=== PATIENT | male | born 1970 | race Caucasian/White ===

== ENCOUNTER 2023-09-04 11:36 | Emergency (ER) | payer BC, SELFPAY ==
[2023-09-04 11:38] VITALS: BP 197/110
[2023-09-04 12:07] VITALS: BMI 59.3
[2023-09-04 12:23] VITALS: BP 129/81
[2023-09-04 12:26] LABS: % Basophils 0.5 % (0-2); % Eosinophils 1.7 % (0-6); % Immature Granulocytes 0.7 % (0-0.5); % Lymphocytes 15.7 % (20.5-51.1); % Monocytes 7.4 % (1.7-9.3); Absolute Basophils 0.1 10^3/uL (0-0.2); Absolute Eosinophils 0.2 10^3/uL (0-0.7); Absolute Immature Granulocytes 0.1 10^3/uL (0-0.05); Absolute Lymphocytes 1.4 10^3/uL (1.2-3.4); Absolute Monocytes 0.7 10^3/uL (0.1-0.6); Absolute Neutrophils 6.8 10^3/uL (1.4-6.5); Hematocrit 43.1 % (39.0-52.0); Hemoglobin 15.2 g/dL (13.0-18.0); Mean Corp Hgb Conc. 35.3 g/dL (33.0-37.0); Mean Corpuscular Hgb 29.4 pg (27.0-31.0); Mean Corpuscular Volume 83.4 fL (80.0-94.0); Mean Platelet Volume 8.7 fL (7.4-10.4); Nucleated Red Blood Cells % 0 % (-); Platelet Count 206 10^3/uL (130-400); Red Blood Cell Count 5.17 10^6/uL (4.70-6.10); Red Cell Dist. Width 13.7 % (11.5-14.5); White Blood Cell Count 9.2 10^3/uL (4.8-10.8)
[2023-09-04 12:39] LABS: ALT (SGPT) 49 U/L (0-50); AST (SGOT) 31 U/L (17-59); Albumin 4.3 g/dl (3.5-5.0); Alkaline Phosphatase 66 U/L (38-126); Blood Urea Nitrogen 11 mg/dl (9-20); Carbon Dioxide 27 mmol/L (22-30); Chloride 104 mmol/L (98-107); Estimated Creatinine Clearance > 125 ml/min; Glucose 92 mg/dl (70-99); Lipase 77 U/L (23-300); Sodium 140 mmol/L (135-145); Total Bilirubin 0.7 mg/dl (0.2-1.3); Total Protein 7.3 g/dl (6.3-8.2); eGFR > 60.00
[2023-09-04 12:59] LABS: Urine Albumin Negative (Neg - Trace); Urine Bilirubin Negative (Negative); Urine Character Clear (Clear); Urine Color Yellow; Urine Glucose Negative (Negative); Urine Ketone Negative (Negative); Urine Leukocyte Trace (Negative); Urine Nitrite Negative (Negative); Urine Occult Blood Negative (Negative); Urine Urobilinogen Negative (Neg - 1+); Urine pH 6.5 (5.0-9.0)
[2023-09-04 13:20] VITALS: BP 138/84
[2023-09-04 14:20] VITALS: BP 130/84
[2023-09-04 14:20] LABS: Urine Red Blood Cell 0-2 /HPF (0-2); Urine Squamous Cell 0-2 /LPF (Few)
--- NOTE | 2023-09-04 15:19 | ED.GENMED ---
History of Present Illness
<Karan Henry Jr., PA-C - Last Filed: 09/05/23 18:14>
General
Chief Complaint: Abdominal Symptoms
Source: patient
Exam Limitations: none
Time Seen by Provider: 09/04/23 11:52
Nursing documentation reviewed up to this point in time: agreed with
Travel History
Have you had any contact with someone who has COVID-19?: No
Do you have any symptoms of coronavirus? Fever > 100 degrees, chills, cough, shortness of breath, sore throat, loss of taste or smell, muscle aches, or headache?: No
History of Present Illness
History of Present Illness:
53-year-old male presenting to the emergency department today with concerns of left lower quad abdominal pain over the past 24 hours also had some urinary symptoms associated as well. Denies similar symptoms in the past. Denies fevers denies
changes in bowel movements denies nausea vomiting.
Past History
<Karan Henry Jr., PA-C - Last Filed: 09/05/23 18:14>
Past History
ED Past Medical History: Other (MRSA left leg); Negative HTN, Hypercholesterolemia, IDDM or NIDDM
Social History
Tobacco: Former smoker
Alcohol: None
Drug: None
Personal:
Living: with family
Family History
Family History: Other
Review of Systems
<Karan Henry Jr., PA-C - Last Filed: 09/05/23 18:14>
Review of Systems
Allergies reviewed?: Yes
All Other Systems: ROS reviewed and negative except as documented in HPI and ROS
Phy Exam
<Karan Henry Jr., PA-C - Last Filed: 09/05/23 18:14>
Physical Exam
Physical Exam:
GENERAL: Alert , in no apparent distress
EYE: pupils equal and reactive
NECK: Supple, no significant adenopathy.
ENT: o/p clr, mmm.
CARDIAC: Regular rate and rhythm .
LUNGS: Clear breath sounds bilaterally, no acute respiratory distress, no wheezes/rales/rhonchi
ABDOMEN: Left lower quadrant abdominal pain
NEUROLOGICAL: Alert and oriented, no focal neuro deficits
SKIN: Warm and dry, skin intact.
MUSCULOSKELETAL: No edema, well perfused.
PSYCH: Normal and appropriate interaction.
Course
<Karan Henry Jr., CASTILLO - Last Filed: 09/05/23 18:14>
Orders/Labs/Results
Orders:
Orders
09/04/23 12:08
Complete Blood Count/With Diff Urgent
Comprehensive Metabolic Panel Urgent
Lipase Urgent
09/04/23 12:22
Urinalysis Reflex To Culture Urgent
Date Specimen was Collected: 09/04/23
Time Specimen was Collected: 12:12
Urine Microscopic Reflex Cult Urgent
09/04/23 14:58
CT Abd/Pel (IV only)-DH only Urgent
Comment:
Reason For Exam: llq pain
09/04/23 18:03
Ketorolac [Toradol] 15 mg IV NOW STA
09/04/23 18:04
Amoxicillin 875 mg/Clav 125 mg [Augmentin 875 mg/125 mg] 1 tablet PO NOW STA
Abnormal Lab Results
09/04/23 09/04/23
12:08 12:22
Abs Immat Gran (auto) 0.1 H 10^3/uL
(0-0.05)
Absolute Neuts (auto) 6.8 H 10^3/uL
(1.4-6.5)
Absolute Monos (auto) 0.7 H 10^3/uL
(0.1-0.6)
Immature Gran % 0.7 H %
(0-0.5)
Lymphocytes % 15.7 L %
(20.5-51.1)
Leukocyte Esterase Rfl Trace A
(Negative)
09/04/23 12:08
09/04/23 12:08
Vital Signs
Initial and Last Documented VS:
Initial Vital Signs
Temp Pulse Resp BP Pulse Ox
97.7 F 100 20 197/110 97
09/04/23 11:38 09/04/23 11:38 09/04/23 11:38 09/04/23 11:38 09/04/23 11:38
Last Documented Vital Signs
Temp Pulse Resp BP Pulse Ox
98.5 F 96 18 163/88 97
09/04/23 17:19 09/04/23 17:19 09/04/23 14:20 09/04/23 17:19 09/04/23 17:19
<LILIAN Ryan - Last Filed: 09/04/23 18:06>
Orders/Labs/Results
Orders:
Orders
09/04/23 12:08
Complete Blood Count/With Diff Urgent
Comprehensive Metabolic Panel Urgent
Lipase Urgent
09/04/23 12:22
Urinalysis Reflex To Culture Urgent
Date Specimen was Collected: 09/04/23
Time Specimen was Collected: 12:12
Urine Microscopic Reflex Cult Urgent
09/04/23 14:58
CT Abd/Pel (IV only)-[facility] only Urgent
Comment:
Reason For Exam: llq pain
09/04/23 18:03
Ketorolac [Toradol] 15 mg IV NOW STA
09/04/23 18:04
Amoxicillin 875 mg/Clav 125 mg [Augmentin 875 mg/125 mg] 1 tablet PO NOW STA
Abnormal Lab Results
09/04/23 09/04/23
12:08 12:22
Abs Immat Gran (auto) 0.1 H 10^3/uL
(0-0.05)
Absolute Neuts (auto) 6.8 H 10^3/uL
(1.4-6.5)
Absolute Monos (auto) 0.7 H 10^3/uL
(0.1-0.6)
Immature Gran % 0.7 H %
(0-0.5)
Lymphocytes % 15.7 L %
(20.5-51.1)
Leukocyte Esterase Rfl Trace A
(Negative)
09/04/23 12:08
09/04/23 12:08
Vital Signs
Initial and Last Documented VS:
Initial Vital Signs
Temp Pulse Resp BP Pulse Ox
97.7 F 100 20 197/110 97
09/04/23 11:38 09/04/23 11:38 09/04/23 11:38 09/04/23 11:38 09/04/23 11:38
Last Documented Vital Signs
Temp Pulse Resp BP Pulse Ox
98.5 F 96 18 163/88 97
09/04/23 17:19 09/04/23 17:19 09/04/23 14:20 09/04/23 17:19 09/04/23 17:19
<Karan Henry Jr., PA-C - Last Filed: 09/05/23 18:14>
MDM/Problems Addressed
MDM/Problems Addressed:
53-year-old male presenting to the emergency department today with concerns of left lower quadrant abdominal pain starting yesterday. Reproducible tenderness to the left lower quadrant otherwise labs unremarkable. Initial vital signs showing
hypertension and tachycardia otherwise vital signs normal.
<LILIAN Ryan - Last Filed: 09/04/23 18:06>
MDM/Problems Addressed
Differential Diagnosis Includes:
MDM/Problems Addressed:
53-year-old male presenting to the emergency department today with concerns of left lower quadrant abdominal pain starting yesterday. Reproducible tenderness to the left lower quadrant otherwise labs unremarkable. Initial vital signs showing
hypertension and tachycardia otherwise vital signs normal.
185: Received signout from patient. CAT scan does show uncomplicated mild acute diverticulitis in the proximal sigmoid colon. Patient no acute distress mild discomfort will give dose of Toradol will DC on Augmentin with outpatient follow-up
family doctor and GI
<LILIAN Ryan - Last Filed: 09/04/23 18:06>
*Radiology
Radiology exam reviewed: radiology read reviewed
*Critical Care Note
Total Time (30-74mins, 75-104mins- exclusive of procedures): Not Applicable
ED Attending Note
<Karan Henry Jr., PA-C - Last Filed: 09/05/23 18:14>
-
Portions of this chart may have been created with voice recognition software.� Occasional wrong word or��sound alike� substitutions may have occurred due to the inherent limitations of voice recognition software.
Discharge Plan
Departure
Patient Disposition: Home (Routine Discharge)
Date of Disposition: 09/04/23
Time of Disposition: 18:01
Patient with high blood pressure during this ER visit?: Yes
Condition: Fair
Covid-19: Not Applicable
Discharge Problem:
Diverticulitis
Instructions: Diverticulitis (DC), BLOOD PRESSURE
Prescriptions:
New
amoxicillin-pot clavulanate 875-125 mg tablet
1 tab PO BID Qty: 20 0RF
No Action
amlodipine 5 MG tablet
5 mg PO DAILY Qty: 30 0RF
linezolid 600 MG tablet
600 mg PO BID Qty: 22 0RF
gabapentin 100 MG capsule
100 mg PO TID Qty: 90 0RF
Referrals:
Kristi Lu MD [Active] -
Filipe Hoyos MD [Family Provider] -
Activity Restrictions/Additional Instructions:
As discussed bland diet for the next several days. Antibiotic Augmentin twice daily for the next 10 days. This medication was sent to your pharmacy. You are given the first dose here in the ER. You may take Tylenol for discomfort. Return if
any worsening of symptoms or increased pain vomiting fever or chills. Follow-up with your family doctor the next 2 days as well as GI.
Interventions
Interventions:
*Risk Screen - Suicide Last Done: 09/04/23 11:38
*General Assessment Last Done: 09/04/23 11:38
*Neglect/Abuse Screening Last Done: 09/04/23 11:38
ED- Fall Risk Assessment Last Done: 09/04/23 12:07
*ED COVID-19 Vaccine History Last Done: 09/04/23 12:07
*Nursing Disposition Last Done: 09/04/23 18:36
AC-Rautyj-Foucsjzkea Assessment Last Done: 09/04/23 12:07
Discharge Date and Time
Discharge Date/Time: 09/04/23 18:30
Print Language: ALBANIAN
[2023-09-04 17:19] VITALS: BP 163/88
[2023-09-04] MEDS: AUGMENTIN 875 MG/125 MG 1 TABLET PO (18:11)
[2023-09-04] MEDS: TORADOL 15 MG IV (18:11)
== END 2023-09-04 18:30 | disposition home or self-care (01) ==
LOC: EMR 11:36
PROVIDERS: Physician Assistant; EMERGENCY PHYSICIAN Emergency Medicine; FAMILY PHYSICIAN Family Medicine
DX: K57.32 Diverticulitis of large intestine without perforation or abscess without bleeding (principal); Z86.14 Personal history of Methicillin resistant Staphylococcus aureus infection; Z88.5 Allergy status to narcotic agent
CPT/HCPCS: 99285; 96374; 74177; 80053; 81003; 81015; 83690; 85025; Q9967

== ENCOUNTER → 2024-01-31 11:04 | Outpatient (REF) | payer BC, SELFPAY ==
[2024-01-31 15:35] LABS: Iron 80 ug/dl (49-181)
[2024-01-31 15:44] LABS: Percent Saturation 21 % (20-50); Total Iron Binding Capacity 366 ug/dl (261-462)
[2024-01-31 16:18] LABS: Hepatitis B Surface Antigen Negative (Negative)
[2024-01-31 16:35] LABS: Hepatitis B Core Ab, Total Negative (Negative); Hepatitis B Surface Antibody Negative; Hepatitis C Antibody Negative (Negative)
[2024-01-31 16:56] LABS: Hepatitis A Antibody, Total Negative (Negative)
== END ==
LOC: HWRAD 11:04
PROVIDERS: ATTENDING PHYSICIAN Family Medicine
DX: R79.89 Other specified abnormal findings of blood chemistry (principal)
CPT/HCPCS: 36415; 76700; 83540; 83550; 86704; 86706; 86708; 86803; 87340